=== PATIENT | female | born 1995 | race Two or more races ===

== ENCOUNTER 2017-06-23 04:22 | Emergency (ER) | payer OTHER ==
[~2017-06-23] VITALS: Ht 167.6 cm; Wt 55.0 kg
[2017-06-23 04:48] VITALS: BP 120/67
== END 2017-06-23 07:52 | disposition left against medical advice (07) ==
LOC: ER 04:22
DX: Z53.21 Procedure and treatment not carried out due to patient leaving prior to being seen by health care provider (principal); E10.8 Type 1 diabetes mellitus with unspecified complications